=== PATIENT | female | born 1960 | race Caucasian/White ===

== ENCOUNTER 2019-09-03 08:40 | Outpatient (CLI) | payer BC, SELFPAY ==
--- NOTE | 2019-09-03 09:12 | CT_ITS ---
WS: [id number] CT ABDOMEN AND PELVIS WITH CONTRAST HISTORY: PELVIC MASS TECHNIQUE: Imaging performed of the abdomen and pelvis with IV contrast. Single phase imaging of the abdomen. Coronal and sagittal reformats are submitted. All CT scans at [facility] use at least one of these dose optimization techniques: automated exposure control; mA and/or kV adjustment per patient size (includes targeted exams where dose is matched to clinical indication); or iterativ e reconstruction. IV CONTRAST: Omnipaque 300; 95 mL IV. Oral contrast: Yes. DLP: 1856.83 mGy.cm COMPARISON: Pelvic ultrasound 08/16/2019. Lower thorax: Lung bases are clear. Heart is normal size. No hiatal hernia. Liver/biliary system: Liver is normal size. Decreased attenuation throughout the liver from hepatic s teatosis. 2 mm hypoattenuating nodule in the anterior LEFT lobe. Portal vein is patent. Gallbladder: Normal. No gallstones or wall thickening. No pericholecystic fluid. Pancreas: Normal. Spleen: Normal. Adrenal glands: Normal. Right kidney: Normal size RIGHT kidney. Minimally complex cyst from the upper pole measures 2.5 cm. N onobstructing 3 mm calcification in the lower pole. Left kidney: Normal. Aorta: Normal. Lymphadenopathy: Several small, subcentimeter retroperitoneal lymph nodes. The largest measures 9 mm along the LEFT common iliac chain. Free fluid: None. GI tract: Prior appendectomy. No obstruction. Abdominal wall: Small fat-containing umbilical hernia. Pelvis: There is a large solid mass with variable density and enhancement in the central pelvis. This mass extends over a length of 15 cm to the level of the umbilicus. Maximum transverse diameter of 14 .1 cm anterior posterior by 12.6 cm. Due to its position this is most likely a large fibroid. Ovaries are being displaced. Bones: Severe degenerative disc disease at L5-S1. CT/CT abdomen pelvis w con* [id number] IMPRESSION: 1. Large pelvic mass consistent with uterine fibroid measuring 15.0 x 14.1 x 1 2.6 cm. Recommend FINANCIAL OPERATIONS CLERK consultation and surgical excision. 2. No ascites or adenopathy. 3. Hepatic steatosis.
[2019-09-03] MEDS: iohexol 300 mg/mL 50 mL Btl VAGINAL (09:34)
[2019-09-03 09:54] LABS: Blood Urea Nitrogen 16 mg/dL (8-23); Glomerular Filtration Rate 125.9 mL/min (90-130)
[2019-09-03] MEDS: iohexol 300 mg/mL 100 mL Btl IV (10:26)
== END 2019-09-03 08:41 | disposition home or self-care (01) ==
PROVIDERS: Family Provider Family Medicine; Visit Provider Family Medicine
DX: R19.00 Intra-abdominal and pelvic swelling, mass and lump, unspecified site (principal); K76.0 Fatty (change of) liver, not elsewhere classified
CPT/HCPCS: 36415; 74177; 82565; 84520

== ENCOUNTER 2020-01-29 08:55 | Inpatient (IN) | payer BC, SELFPAY ==
[2020-01-29] VITALS (19 sets, daily range): BP systolic 112–146; BP diastolic 66–94; PULSE 75–85; RESP 18–37; TEMP 36.9–37.1; O2SAT 82–94; BMI 36.9
--- NOTE | 2020-01-29 09:40 | ED_ITS ---
HPI - SOB/Dyspnea General: Chief Complaint: COVID symptoms Stated Complaint: Covid pos 01/19/20 Time Seen by Provider: 01/29/20 09:07 History of Present Illness: HPI Narrative: 59-year-old female presents emergency room with complaint shortness of breath. She was diagnosed at an outside clinic with Covid on 01/18. She is taken a 10-day course of dexamethasone. She been monitoring her oxygen sats at home. Presents today complaining of shortness of breath with any exertional effort usually at rest at times sats on room air at home of been measured by a finger sat monitor to be in the 75 to 85% range. She has had temperatures as well T-max up to 102. She has had some diarrhea. She has a history of asthma and borderline hypertension she is not diabetic MD elicited complaint: shortness of breath and cough Pertinent past history: asthma Onset (ago): day(s) Context: recent illness (Diagnosed with COVID-19 on January 19, 2020) Timing: constant Severity: moderate Exacerbating factors: exertion Relieving factors: oxygen and rest Known history of: asthma Associated symptoms: Reports cough; Deny abdominal pain, chest congestion, chest pain, diaphoresis, dizziness, extremity pain, fever(s), hemoptysis, lightheadedness, myalgias, nausea, orthopnea, palpitations, paresthesias, polydipsia, polyuria, rash, sense of impending doom, syncope or vomiting Treatment prior to arrival: none Review of Systems Const: Denies: fever(s) or diaphoresis ENMT: Denies: throat pain, ear or mastoid pain, nasal discharge or nasal congestion Card: Denies: chest pain, palpitations, lightheadedness, syncope or orthopnea Resp: Denies: hemoptysis or chest congestion GI: Denies: abdominal pain, nausea or vomiting : Denies: flank pain, difficulty voiding, dysuria, urinary frequency or urinary urgency Musc: Denies: extremity pain Skin/Breast: Denies: rash or pruritus Neuro: Denies: dizziness Endo: Denies: polyuria or polydipsia PFS ED PFSH: Medical History Asthma Surgical History H/O hysterectomy for benign disease Secondary to uterine fibroid, August 2019 History of appendectomy History of sinus surgery Family History Other CAD (coronary artery disease) Social History Smoking and tobacco status: never smoked Alcohol intake: never Substance/Drug Use: never Physical Exam Const: COMMON NORMALS: no acute distress GENERAL APPEARANCE: cooperative and comfortable ORIENTATION/CONSCIOUSNESS: Yes awake, Yes oriented to person, Yes oriented to place and Yes oriented to time HENMT: COMMON NORMALS: normocephalic, atraumatic and hearing grossly normal bilaterally HEAD & SCALP: normocephalic and atraumatic Eye: COMMON NORMALS: Equal, round and reactive pupils present, EOMs intact bilaterally, conjunctivae normal and no scleral icterus CONJUNCTIVA: Yes conjunctivae normal PUPIL: Yes Equal, round and reactive pupils present Neck/C-Spine: COMMON NORMALS: full ROM, no lymphadenopathy, supple and no JVD Lymph: LYMPHATIC: no lymphadenopathy noted and no lymphedema noted Resp: AUSCULTATION: rhonchi and wheezes Cardio: COMMON NORMALS: no JVD, regular rate, regular rhythm and No murmurs present (Cardio) RATE: regular rate RHYTHM: regular rhythm GI: COMMON NORMALS: Soft to palpation and No hepatosplenomegaly present AUSCULTATION: Yes normoactive bowel sounds PALPATION: Yes Soft to palpation, No Tenderness to palpation present (GI), No Guarding due to palpation present (GI) and Yes No hepatosplenomegaly present Extremity: COMMON NORMALS: normal to inspection, capillary refill normal, no clubbing, cyanosis or edema, no calf tenderness and no pedal edema Neuro: SENSORIUM/ORIENTATION: Yes oriented to person, Yes oriented to place and Yes oriented to time Skin: COMMON NORMALS: no rashes or lesions noted GENERAL SKIN EXAM: no rashes or lesions noted Course Vital Signs: Vital signs: Vital Signs Temperature 97.7 F 02/02/20 08:00 Pulse Rate 72 02/02/20 08:00 Respiratory Rate 20 H 02/02/20 08:00 Blood Pressure 147/85 02/02/20 08:00 Pulse Oximetry 94 02/02/20 08:00 MDM - SOB/Dyspnea MDM Narrative: Medical decision making narrative: Patient with COVID-19 requiring increased oxygen support will go ahead and admit to the PICU discussed Dr. Hooks orders are written Lab Data: Labs: Lab Results 01/29/20 01/29/20 01/29/20 Range/Units 09:57 10:19 10:19 WBC 11.8 H (4.0-10.0) 10^3/ uL RBC 4.48 (4.1-5.3) 10^6/u L Hgb 14.3 (11.5-15.3) g/dL Hct 44.1 (37.0-47.0) % MCV 98.4 (81-99) fL MCH 31.9 (28.0-34.0) pg MCHC 32.4 (30.0-36.0) g/dL RDW 13.3 (12.1-15.1) % Plt Count 212 (130-400) 10^3/c mm MPV 10.4 (7.4-10.4) fL Neut % (Auto) 93.8 % Lymph % (Auto) 3.6 % [place] % (Auto) 1.5 % Eos % (Auto) 0.3 % Baso % (Auto) 0.1 % Neut # (Auto) 11.10 H (1.8-7.7) 10^3/u L Lymph # (Auto) 0.4 L (0.8-4.8) 10^3/u L [place] # (Auto) 0.2 (0.2-0.9) 10^3/u L Eos # (Auto) 0.0 (0.0-0.8) 10^3/u L Baso # (Auto) 0.0 (0.0-0.1) 10^3/u L Nucleated RBC % (a uto) 0 % Nucleated RBCs # 0.0 /100WBC Fibrinogen 724 H (174-498) mg/dL D-Dimer 0.75 H (0-0.59) ug/mIFE U Specimen Type Arterial Sample Site Radial, right ABG pH 7.47 H (7.35-7.45) ABG pCO2 35.8 (35-45) mmHg ABG pO2 64.0 L (80.0-100.0) mmH g ABG HCO3 26.2 H (22-26) mmol/L ABG Base Excess 2.8 H (-2.0-2.0) mmol/ L Jerry Test Pos Hematocrit 46.4 (37-47) % O2 Delivery Device Nc O2 Liters/Min 2.5 % Microsoft Crm Developer ID Gd Sodium (136-145) mmol/L Potassium (3.5-5.1) mmol/L Chloride (98-107) mmol/L Carbon Dioxide (22-29) mmol/L Anion Gap (5-19) BUN (8-23) mg/dL Creatinine (0.5-0.9) mg/dL GFR Calculation (90-130) mL/min Glucose (65-115) mg/dL Calculated Osmolal ity (285-295) mOsm/k g Lactic Acid (0.5-2.2) mmol/L Calcium (8.5-10.5) mg/dL Ferritin (15-150) ng/mL Total Bilirubin (0.15-1.2) mg/dL AST (0-32) U/L ALT (0-33) U/L Alkaline Phosphata se (35-105) IU/L Lactate Dehydrogen ase (135-214) U/L C-Reactive Protein (0.0-4.9) mg/L Total Protein (6.6-8.7) g/dL Albumin (3.5-5.2) g/dL Globulin (1.3-4.6) g/dL Procalcitonin (0-0.5) ng/mL TSH (0.27-4.20) uIU/ mL Hepatitis A IgM Ab (Nonreactive) Hep Bs Antigen (Nonreactive) Hep B Core IgM Ab (Nonreactive) Hepatitis C Antibo dy (Nonreactive) Influenza Type A A g (Negative) Influenza Type B A g (Negative) 01/29/20 01/29/20 01/29/20 Range/Units 10:19 10:19 10:19 WBC (4.0-10.0) 10^3/ uL RBC (4.1-5.3) 10^6/u L Hgb (11.5-15.3) g/dL Hct (37.0-47.0) % MCV (81-99) fL MCH (28.0-34.0) pg MCHC (30.0-36.0) g/dL RDW (12.1-15.1) % Plt Count (130-400) 10^3/c mm MPV (7.4-10.4) fL Neut % (Auto) % Lymph % (Auto) % [place] % (Auto) % Eos % (Auto) % Baso % (Auto) % Neut # (Auto) (1.8-7.7) 10^3/u L Lymph # (Auto) (0.8-4.8) 10^3/u L [place] # (Auto) (0.2-0.9) 10^3/u L Eos # (Auto) (0.0-0.8) 10^3/u L Baso # (Auto) (0.0-0.1) 10^3/u L Nucleated RBC % (a uto) % Nucleated RBCs # /100WBC Fibrinogen (174-498) mg/dL D-Dimer (0-0.59) ug/mIFE U Specimen Type Sample Site ABG pH (7.35-7.45) ABG pCO2 (35-45) mmHg ABG pO2 (80.0-100.0) mmH g ABG HCO3 (22-26) mmol/L ABG Base Excess (-2.0-2.0) mmol/ L Jerry Test Hematocrit (37-47) % O2 Delivery Device O2 Liters/Min % Microsoft Crm Developer ID Sodium 134 L (136-145) mmol/L Potassium 3.9 (3.5-5.1) mmol/L Chloride 97 L (98-107) mmol/L Carbon Dioxide 26 (22-29) mmol/L Anion Gap 14.9 (5-19) BUN 11 (8-23) mg/dL Creatinine 0.5 (0.5-0.9) mg/dL GFR Calculation 125.9 (90-130) mL/min Glucose 113 (65-115) mg/dL Calculated Osmolal ity 278 L (285-295) mOsm/k g Lactic Acid 1.0 (0.5-2.2) mmol/L Calcium 8.9 (8.5-10.5) mg/dL Ferritin 459 H (15-150) ng/mL Total Bilirubin 0.5 (0.15-1.2) mg/dL AST 121 H (0-32) U/L ALT 178 H (0-33) U/L Alkaline Phosphata se 291 H (35-105) IU/L Lactate Dehydrogen ase 396 H (135-214) U/L C-Reactive Protein 271.2 H (0.0-4.9) mg/L Total Protein 7.1 (6.6-8.7) g/dL Albumin 3.6 (3.5-5.2) g/dL Globulin 3.5 (1.3-4.6) g/dL Procalcitonin (0-0.5) ng/mL TSH (0.27-4.20) uIU/ mL Hepatitis A IgM Ab (Nonreactive) Hep Bs Antigen (Nonreactive) Hep B Core IgM Ab (Nonreactive) Hepatitis C Antibo dy (Nonreactive) Influenza Type A A g Negative (Negative) Influenza Type B A g Negative (Negative) 01/29/20 01/29/20 Range/Units 10:19 10:19 WBC (4.0-10.0) 10^3/ uL RBC (4.1-5.3) 10^6/u L Hgb (11.5-15.3) g/dL Hct (37.0-47.0) % MCV (81-99) fL MCH (28.0-34.0) pg MCHC (30.0-36.0) g/dL RDW (12.1-15.1) % Plt Count (130-400) 10^3/c mm MPV (7.4-10.4) fL Neut % (Auto) % Lymph % (Auto) % [place] % (Auto) % Eos % (Auto) % Baso % (Auto) % Neut # (Auto) (1.8-7.7) 10^3/u L Lymph # (Auto) (0.8-4.8) 10^3/u L [place] # (Auto) (0.2-0.9) 10^3/u L Eos # (Auto) (0.0-0.8) 10^3/u L Baso # (Auto) (0.0-0.1) 10^3/u L Nucleated RBC % (a uto) % Nucleated RBCs # /100WBC Fibrinogen (174-498) mg/dL D-Dimer (0-0.59) ug/mIFE U Specimen Type Sample Site ABG pH (7.35-7.45) ABG pCO2 (35-45) mmHg ABG pO2 (80.0-100.0) mmH g ABG HCO3 (22-26) mmol/L ABG Base Excess (-2.0-2.0) mmol/ L Jerry Test Hematocrit (37-47) % O2 Delivery Device O2 Liters/Min % Microsoft Crm Developer ID Sodium (136-145) mmol/L Potassium (3.5-5.1) mmol/L Chloride (98-107) mmol/L Carbon Dioxide (22-29) mmol/L Anion Gap (5-19) BUN (8-23) mg/dL Creatinine (0.5-0.9) mg/dL GFR Calculation (90-130) mL/min Glucose (65-115) mg/dL Calculated Osmolal ity (285-295) mOsm/k g Lactic Acid (0.5-2.2) mmol/L Calcium (8.5-10.5) mg/dL Ferritin (15-150) ng/mL Total Bilirubin (0.15-1.2) mg/dL AST (0-32) U/L ALT (0-33) U/L Alkaline Phosphata se (35-105) IU/L Lactate Dehydrogen ase (135-214) U/L C-Reactive Protein (0.0-4.9) mg/L Total Protein (6.6-8.7) g/dL Albumin (3.5-5.2) g/dL Globulin (1.3-4.6) g/dL Procalcitonin 0.17 (0-0.5) ng/mL TSH 2.33 (0.27-4.20) uIU/ mL Hepatitis A IgM Ab Non-reactive (Nonreactive) Hep Bs Antigen Non-reactive (Nonreactive) Hep B Core IgM Ab Non-reactive (Nonreactive) Hepatitis C Antibo dy Non-reactive (Nonreactive) Influenza Type A A g (Negative) Influenza Type B A g (Negative) Discharge Plan Discharge Patient Disposition: Admitted As Inpatient Admit Provider: Brendan Hooks Clinical Impression: Pneumonia due to COVID-19 virus, Transaminitis Condition: Stable Interventions: ED Discharge Assessment Last Done: 01/29/20 15:56 ED Charges Last Done: 11/03/20 15:56 Discharge Date/Time: 11/03/20 16:51 Coding Level of Care Code ED Digital Strategy Specialist for Chg Fwd Exam Comprehensive
--- NOTE | 2020-01-29 09:46 | XR_ITS ---
WS: [id number] Portable AP upright chest, 01/29/2020 Clinical Data: dyspnea Comparison: PA and lateral chest, 07/15/2014. Findings: Bilateral patchy opacities present in both lungs are consistent with diffuse bilateral pneu monia. The heart is normal. The aortic arch and descending aorta are tortuous. There are no nodules, masses or effusions. XR/XR chest 1V portable [id number] Impression: 1. Patchy bilateral opacities consistent with diffuse bilateral pneumonia. 2. Atherosclerosis.
[2020-01-29 10:14] LABS: ABG PCO2 35.8 mmHg (35-45); ABG PH Result 7.47 (7.35-7.45); Arterial Blood Gas Hematocrit 46.4 % (37-47); Base Excess ABG 2.8 mmol/L (-2.0-2.0); Blood Gas Allen Test Pos; Blood Gas LPM 2.5 %; Blood Gas Operator Identificat GD; Blood Gas Sample Site Radial, right; Blood Gas Sample Type Arterial; HCO3 ABG 26.2 mmol/L (22-26); Oxygen Device NC
[2020-01-29 10:28] LABS: Basophils % 0.1 %; Eosinophils % 0.3 %; Hematocrit 44.1 % (37.0-47.0); Hemoglobin 14.3 g/dL (11.5-15.3); Lymphocytes # 0.4 10^3/uL (0.8-4.8); Lymphocytes % 3.6 %; Mean Corpuscular HGB Conc 32.4 g/dL (30.0-36.0); Mean Corpuscular Hemoglobin 31.9 pg (28.0-34.0); Mean Corpuscular Volume 98.4 fL (81-99); Mean Platelet Volume 10.4 fL (7.4-10.4); Monocytes # 0.2 10^3/uL (0.2-0.9); Monocytes % 1.5 %; Neutrophils % 93.8 %; Nucleated Red Blood Cells % 0 %; Platelet Count 212 10^3/cmm (130-400); Red Blood Count 4.48 10^6/uL (4.1-5.3); Red Cell Distribution Width 13.3 % (12.1-15.1); White Blood Count 11.8 10^3/uL (4.0-10.0)
[2020-01-29 10:40] LABS: Fibrinogen 724 mg/dL (174-498)
[2020-01-29 10:43] LABS: D Dimer 0.75 ug/mIFEU (0-0.59)
[2020-01-29 10:47] LABS: Alanine Aminotransferase 178 U/L (0-33); Albumin Level 3.6 g/dL (3.5-5.2); Alkaline Phosphatase 291 IU/L (35-105); Anion Gap 14.9 (5-19); Aspartate Amino Transferase 121 U/L (0-32); Blood Urea Nitrogen 11 mg/dL (8-23); C Reactive Protein 271.2 mg/L (0.0-4.9); Calcium 8.9 mg/dL (8.5-10.5); Carbon Dioxide 26 mmol/L (22-29); Chloride 97 mmol/L (98-107); Ferritin 459 ng/mL (15-150); Globulin 3.5 g/dL (1.3-4.6); Glomerular Filtration Rate 125.9 mL/min (90-130); Glucose 113 mg/dL (65-115); Lactate Dehydrogenase 396 U/L (135-214); Osmolality Calculated 278 mOsm/kg (285-295); Potassium 3.9 mmol/L (3.5-5.1); Sodium 134 mmol/L (136-145); Total Bilirubin 0.5 mg/dL (0.15-1.2); Total Protein 7.1 g/dL (6.6-8.7)
--- NOTE | 2020-01-29 11:00 | CT_ITS ---
WS: [id number] CTA OF THE CHEST WITH PULMONARY EMBOLISM PROTOCOL TECHNIQUE: High-resolution contrast enhanced CTA of the chest with coronal and sagittal reformatted i mages with pulmonary embolism protocol. MIP images are also reviewed. CLINICAL INFORMATION: dyspnea/hypoxia COMPARISON: None. DLP: 479.[address] scans at [facility] use at least one of these dose optimization techniques: automat ed exposure control; mA and/or kV adjustment per patient size (includes targeted exams where dose is matched to clinical indication); or iterative reconstruction. FINDINGS: Moderate chronic emphysematous changes. Trace pleural effusions. Diffuse patchy groundglass infiltrat es mainly in a perihilar distribution and right upper lobe distribution. This can be seen with viral pneumonia. No focal consolidation. Proximal main pulmonary arteries are normal. Segmental and subsegmental pulmonary arteries are normal . No evidence of pulmonary embolus. Normal caliber thoracic aorta. Enlarged mediastinal, paratracheal, hilar, and subcarinal lymph nodes are nonspecific but may be reactive. Diffuse fatty infiltration the liver. Adrenal glands are normal. Normal GE junction. Hypertrophic juan carlos nges mid thoracic spine. No axillary lymphadenopathy. CT/CT angio chest PE protcl [id number] IMPRESSION: 1. Proximal main pulmonary arteries are normal. Segmental and subsegmental pul monary arteries are normal. No evidence for pulmonary embolus. 2. Diffuse bilateral hazy groundglass infiltrates mainly in a perihilar distri bution suspicious for viral pneumonia. Trace pleural effusions with bibasilar a telectasis. 3. Enlarged mediastinal,paratracheal and hilar lymph nodes nonspecific but lik joseph reactive. 4. Diffuse fatty infiltration liver. Message left for Ronny Wheeler DO at 01/29/2020 11:38 AM.
[2020-01-29 11:20] LABS: Influenza A by IFA Negative (Negative); Influenza B by IFA Negative (Negative)
[2020-01-29] MEDS: dexamethasone 4 mg/mL INJ 10 MG IVP (12:27)
--- NOTE | 2020-01-29 13:01 | PM.HP ---
Providers/Chief Complaint Primary Care Provider: Shane Garcia MD Chief Complaint: Covid pos 01/19/20 History of Present Illness Rebecca Simon is a 59 year old female who reports she has had symptoms worrisome for Covid since perhaps 15 of January. She has had nasal congestion, cough, intermittent fevers, nausea. She reports she has been short of breath lately, and having more asthma symptoms. Cough is usually nonproductive. She tested positive for Covid, at [facility] on January 18. She states her is a nurse, who has Covid as well but is doing okay at home. She reports some chest discomfort, when she takes a deep breath. She denies any hemoptysis, blood in her stool, black or tarry stool, bleeding disorder. She reports usually her asthma is very mild. She does not use a steroid inhaler. She reports use of albuterol, perhaps once per month. While in the emergency department she was found to have a room air oxygen saturation of 82% and therefore was put on oxygen. She received a dose of dexamethasone, and remdesivir. Review of Systems General: Reports: 10 or more systems reviewed and unremarkable except in HPI and below Const: Reports: fever(s), chills and body aches Eyes: Denies: change in vision ENMT: Denies: throat pain Card: Reports: chest pain Resp: Reports: dyspnea and non-productive cough GI: Denies: abdominal pain : Denies: flank pain Musc: Denies: neck pain Skin/Breast: Denies: rash Neuro: Denies: headache(s) Psych: Denies: anxiety Endo: Denies: polyuria Jose/Lymph: Denies: easy bruising All/Imm: Denies: urticaria Medications/Allergies Home Medications Medication Instructions Recorded Confirmed Last Taken Type Vitamin D3 1 tab PO DAILY 01/29/20 01/29/20 Unknown History acetaminophen [Tylenol Extra 1,000 mg PO PRN 01/29/20 01/29/20 01/28/20 History Strength] albuterol sulfate 2.5 mg INHALATION QID PRN 01/29/20 01/29/20 01/28/20 History diphenhydramine HCl [Benadryl] 25 mg PO PRN 01/29/20 01/29/20 Unknown History levothyroxine [Euthyrox] 137 mcg PO DAILY 01/29/20 01/29/20 01/29/20 History multivitamin [Multiple Vitamins] 1 tab PO DAILY 01/29/20 01/29/20 Unknown History Allergies Allergy/AdvReac Type Severity Reaction Status Date / Time No Known Allergies Allergy Verified 01/29/20 10:12 PFSH Acute PFSH: Medical History (Updated 01/29/20 @ 13:10 by Selvin Ontiveros MD) Asthma Surgical History (Updated 01/29/20 @ 13:05 by Selvin Ontiveros MD) H/O hysterectomy for benign disease Secondary to uterine fibroid, August 2019 History of appendectomy History of sinus surgery Family History (Updated 01/29/20 @ 13:05 by Selvin Ontiveros MD) Other CAD (coronary artery disease) Social History (Updated 01/29/20 @ 13:06 by Selvin Ontiveros MD) Smoking and tobacco status: never smoked Alcohol intake: never Substance/Drug Use: never Supplemental PFSH Information: Father had Mellette's chorea Vitals/I&O/Wt Last Vital Signs Temp 98.8 F 01/29/20 09:45 Pulse 82 01/29/20 09:45 Resp 18 01/29/20 09:45 BP 146/91 01/29/20 09:45 Pulse Ox 82 L 01/29/20 09:45 Weight last 48 hrs Weight 103.873 kg Physical Exam Narrative: EXAM NARRATIVE: General exam is a dyspneic white female, in mild respiratory distress HEENT: Pupils equally round. Oropharynx clear. Neck is supple no lymphadenopathy or thyromegaly Cardiovascular regular rate and rhythm without murmur Lungs few scattered dry crackles. No wheezing. Diminished breath sounds is noted bilaterally Abdomen is soft with positive bowel sounds. No obvious organomegaly was deferred Extremities no cyanosis clubbing or edema, cap refill brisk Skin no rash Neuro no focal deficits Data : 01/29/20 10:19 01/29/20 10:19 Other data: AST 121, ALT 178, alk phos 291, LDH 396, CRP 271, albumin 3.6 Influenza a and B- pH 7.47, PCO2 36, PO2 64 on 2.5 L Dimer 0.75, fibrinogen 724 CTA demonstrates enlarged mediastinal lymph nodes likely reactive, fatty liver, no pulmonary embolism, groundglass infiltrates consistent with viral pneumonia Chest x-ray per my read bilateral interstitial infiltrates. A&P Assessment and plan (1) Pneumonia due to COVID-19 virus: Meets criteria for severe COVID-19 pneumonia. Admission Oxygen as needed Remdesivir Dexamethasone 6 mg IV every 24 hours Albuterol as needed Incentive spirometry Prone as much as possible Doxycycline in case of superimposed bacterial infection. Check procalcitonin level. If significantly elevated may wish to expand coverage. Likely repeat inflammatory levels 01/30 Status: Acute (2) Asthma: Mild intermittent per history, however in the face of Covid will initiate Advair. 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
[2020-01-29 13:42] LABS: Procalcitonin 0.17 ng/mL (0-0.5); Thyroid Stimulating Hormone 2.33 uIU/mL (0.27-4.20)
[2020-01-29 16:35] LABS: Hepatitis A Antibody IgM Non-Reactive (Nonreactive); Hepatitis B Core IgM Non-Reactive (Nonreactive); Hepatitis B Surface Antigen Non-Reactive (Nonreactive); Hepatitis C Virus Antibody Non-Reactive (Nonreactive)
[2020-01-29] MEDS: doxycycline 100 MG in sodium chloride 0.9% (plus) 100 ML IV (17:19)
[2020-01-29] MEDS: enoxaparin 40 mg/0.4 mL Syringe SUBCUT (17:36)
--- NOTE | 2020-01-29 21:45 | PC.NURSE ---
Patient's BUN 87. BUN value improved from previous test et is currently receiving hemodialysis.
[2020-01-30] VITALS (34 sets, daily range): BP systolic 110–146; BP diastolic 59–94; PULSE 65–89; RESP 13–40; TEMP 36.5–36.9; O2SAT 85–98
[2020-01-30] MEDS: acetaminophen 325 mg Tablet 650 MG PO ×2 (01:11→11:57)
[2020-01-30] MEDS: pneumococcal (23 valent) SDV 0.5 mL IM (04:46)
[2020-01-30] MEDS: doxycycline 100 MG in sodium chloride 0.9% (plus) 100 ML IV ×2 (05:07→16:26)
[2020-01-30 06:23] LABS: Hematocrit 43.2 % (37.0-47.0); Hemoglobin 13.7 g/dL (11.5-15.3); Lymphocytes # 0.3 10^3/uL (0.8-4.8); Lymphocytes % 3.9 %; Mean Corpuscular HGB Conc 31.7 g/dL (30.0-36.0); Mean Corpuscular Hemoglobin 31.2 pg (28.0-34.0); Mean Corpuscular Volume 98.4 fL (81-99); Mean Platelet Volume 11.2 fL (7.4-10.4); Monocytes # 0.2 10^3/uL (0.2-0.9); Monocytes % 2.4 %; Neutrophils # 6.92 10^3/uL (1.8-7.7); Nucleated Red Blood Cells % 0 %; Platelet Count 227 10^3/cmm (130-400); Red Blood Count 4.39 10^6/uL (4.1-5.3); Red Cell Distribution Width 13.2 % (12.1-15.1); White Blood Count 7.4 10^3/uL (4.0-10.0)
[2020-01-30] MEDS: levothyroxine 112 mcg Tablet PO (06:37)
[2020-01-30 06:38] LABS: Alanine Aminotransferase 129 U/L (0-33); Albumin Level 3.4 g/dL (3.5-5.2); Alkaline Phosphatase 260 IU/L (35-105); Anion Gap 16.9 (5-19); Aspartate Amino Transferase 64 U/L (0-32); Blood Urea Nitrogen 12 mg/dL (8-23); Carbon Dioxide 25 mmol/L (22-29); Chloride 97 mmol/L (98-107); Globulin 3.5 g/dL (1.3-4.6); Glomerular Filtration Rate 125.9 mL/min (90-130); Glucose 148 mg/dL (65-115); Osmolality Calculated 283 mOsm/kg (285-295); Potassium 3.9 mmol/L (3.5-5.1); Sodium 135 mmol/L (136-145); Total Bilirubin 0.3 mg/dL (0.15-1.2); Total Protein 6.9 g/dL (6.6-8.7)
[2020-01-30] MEDS: levothyroxine 25 mcg Tablet PO (06:38)
[2020-01-30 06:40] LABS: C Reactive Protein 301.9 mg/L (0.0-4.9)
[2020-01-30 06:45] LABS: Magnesium 2.1 mg/dL (1.7-2.3)
[2020-01-30] MEDS: dexamethasone 4 mg/mL INJ 6 MG IVP (08:07)
[2020-01-30] MEDS: multivitamin therapeutic Tablet 1 TAB PO (08:07)
[2020-01-30] MEDS: enoxaparin 40 mg/0.4 mL Syringe SUBCUT (15:18)
--- NOTE | 2020-01-30 15:36 | PM.PN ---
Subjective Subjective: Interval history: She was up to the sink to perform her morning hygiene just before my visit. Got pretty tired, but overall was able to accomplish what she needed. Overall was feeling little bit better today. Does get tired easily. Denies chest pain or pressure. No headache, no nausea vomiting, diarrhea. Vitals/I&O/Wt Last Vital Signs Temp 98.1 F 01/30/20 12:00 Pulse 84 01/30/20 15:00 Resp 27 H 01/30/20 15:00 BP 126/59 01/30/20 15:00 Pulse Ox 93 01/30/20 15:00 01/30/20 01/30/20 01/30/20 06:59 14:59 22:59 Intake Total 700 / 1410 580 / 580 Output Total 550 / 1500 700 / 700 Balance 150 / -90 -120 / -120 Weight last 48 hrs Weight 103.873 kg Weight 103.873 kg Physical Exam Const: COMMON NORMALS: no acute distress, patient oriented x3 and alert NUTRITIONAL APPEARANCE: obese ORIENTATION/CONSCIOUSNESS: Yes awake OTHER: Sitting up in bed, cooperative. Pleasant, conversant. In good spirits. HENMT: COMMON NORMALS: oropharynx normal Neck/C-Spine: COMMON NORMALS: no JVD Resp: COMMON NORMALS: normal respiratory effort AUSCULTATION: crackles Laterality: bilateral (Few faint crackles at bases.) Cardio: COMMON NORMALS: no JVD, regular rhythm, S1 normal heart sound present, S2 normal heart sound present and No murmurs present (Cardio) RHYTHM: regular rhythm HEART SOUNDS: S1 normal heart sound present and S2 normal heart sound present GI: COMMON NORMALS: Normal to inspection, nondistended, normoactive bowel sounds present, Soft to palpation and non-tender PALPATION: Yes Soft to palpation Extremity: COMMON NORMALS: no joint enlargement and no pedal edema Neuro: COMMON NORMALS: patient oriented x3 and moves all extremities SENSORIUM/ORIENTATION: Yes alert Skin: COMMON NORMALS: no rashes or lesions noted GENERAL SKIN EXAM: no rashes or lesions noted Data : 01/30/20 03:45 01/30/20 03:45 Micro: Microbiology 01/29/20 14:08 Blood Culture - Preliminary Blood NEGATIVE TO DATE 01/29/20 14:08 Blood Culture - Preliminary Blood NEGATIVE TO DATE A&P Assessment and plan (1) Pneumonia due to COVID-19 virus: Meets criteria for severe COVID-19 pneumonia. Subjectively somewhat improved this morning, but is requiring 8 L high flow nasal cannula oxygen during the day. Saturation 91%. Easily fatigable. D-dimer 0.8. CRP higher at 301.9. Liver parameters improved, AST 64, ALT 129, alk phos 260. Remdesivir was ordered, but appears first dose was held. Will restart currently given deterioration in oxygenation, improvement in liver parameters. Monitor liver function. Renal function is good so far. Continue Decadron Albuterol as needed Incentive spirometry Prone as much as possible Doxycycline in case of superimposed bacterial infection. Continue unchanged. Procalcitonin unremarkable. Status: Acute (2) Asthma: Mild intermittent per history. In the face of Covid initiated on Advair. No wheezing. Combivent every 4 hours as needed Status: Acute (3) Hypothyroidism: Normal TSH Continue levothyroxine Status: Acute (4) Transaminitis: Improving. Likely secondary to COVID-19 Unremarkable hepatitis panel Repeat laboratory tomorrow Status: Acute Additional A&P Information Full code SCDs for DVT prophylaxis as well as Lovenox Attestations Medical Necessity Statement*: Continue admission for assessment of management of severe COVID-19 infection, hypoxia, transaminitis, insetting of underlying asthma. 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
[2020-01-31] VITALS (30 sets, daily range): BP systolic 117–146; BP diastolic 67–103; PULSE 70–86; RESP 16–34; TEMP 36.4–36.9; O2SAT 87–97
[2020-01-31] MEDS: doxycycline 100 MG in sodium chloride 0.9% (plus) 100 ML IV ×2 (04:04→16:33)
[2020-01-31] MEDS: levothyroxine 112 mcg Tablet PO (05:08)
[2020-01-31] MEDS: levothyroxine 25 mcg Tablet PO (05:08)
[2020-01-31 06:34] LABS: Basophils % 0.1 %; Hematocrit 40.8 % (37.0-47.0); Hemoglobin 12.9 g/dL (11.5-15.3); Lymphocytes # 0.5 10^3/uL (0.8-4.8); Lymphocytes % 4.7 %; Mean Corpuscular HGB Conc 31.6 g/dL (30.0-36.0); Mean Corpuscular Hemoglobin 31.2 pg (28.0-34.0); Mean Corpuscular Volume 98.6 fL (81-99); Mean Platelet Volume 10.9 fL (7.4-10.4); Monocytes # 0.4 10^3/uL (0.2-0.9); Neutrophils # 9.78 10^3/uL (1.8-7.7); Neutrophils % 90.6 %; Nucleated Red Blood Cells % 0 %; Platelet Count 290 10^3/cmm (130-400); Red Blood Count 4.14 10^6/uL (4.1-5.3); Red Cell Distribution Width 13.1 % (12.1-15.1); White Blood Count 10.8 10^3/uL (4.0-10.0)
[2020-01-31 06:56] LABS: Alanine Aminotransferase 101 U/L (0-33); Albumin Level 3.2 g/dL (3.5-5.2); Alkaline Phosphatase 227 IU/L (35-105); Aspartate Amino Transferase 51 U/L (0-32); Blood Urea Nitrogen 16 mg/dL (8-23); C Reactive Protein 99.6 mg/L (0.0-4.9); Carbon Dioxide 26 mmol/L (22-29); Chloride 99 mmol/L (98-107); Globulin 3.4 g/dL (1.3-4.6); Glomerular Filtration Rate 125.9 mL/min (90-130); Glucose 111 mg/dL (65-115); Osmolality Calculated 288 mOsm/kg (285-295); Sodium 138 mmol/L (136-145); Total Bilirubin 0.2 mg/dL (0.15-1.2); Total Protein 6.6 g/dL (6.6-8.7)
[2020-01-31] MEDS: multivitamin therapeutic Tablet 1 TAB PO (08:00)
[2020-01-31] MEDS: dexamethasone 4 mg/mL INJ 6 MG IVP (08:00)
[2020-01-31] MEDS: acetaminophen 325 mg Tablet 650 MG PO (08:00)
[2020-01-31] MEDS: benzonatate 100 mg Capsule PO (08:04)
--- NOTE | 2020-01-31 12:22 | PM.PN ---
Subjective Subjective: Interval history: Patient is feeling well. Her oxygen has been increased,, subjectively she says she is doing all right. Saturation has been staying good. She has been working with I-S and flutter valve. Denies chest pain. Denies nausea vomiting or diarrhea. No headache. Vitals/I&O/Wt Last Vital Signs Temp 97.9 F 01/31/20 12:00 Pulse 80 01/31/20 12:00 Resp 30 H 01/31/20 12:00 BP 125/86 01/31/20 12:00 Pulse Ox 97 01/31/20 12:00 01/30/20 01/31/20 01/31/20 22:59 06:59 14:59 Intake Total 577 / 1157 720 / 720 Output Total 400 / 1100 350 / 1450 Balance 177 / 57 -350 / -293 720 / 720 Weight last 48 hrs Weight 103.873 kg Physical Exam Const: COMMON NORMALS: no acute distress, patient oriented x3 and alert NUTRITIONAL APPEARANCE: obese ORIENTATION/CONSCIOUSNESS: Yes awake OTHER: Sitting up in bed, cooperative. Pleasant, conversant. In good spirits. HENMT: COMMON NORMALS: oropharynx normal Neck/C-Spine: COMMON NORMALS: no JVD Resp: COMMON NORMALS: normal respiratory effort AUSCULTATION: bronchial breath sounds Cardio: COMMON NORMALS: no JVD, regular rhythm, S1 normal heart sound present, S2 normal heart sound present and No murmurs present (Cardio) RHYTHM: regular rhythm HEART SOUNDS: S1 normal heart sound present and S2 normal heart sound present GI: COMMON NORMALS: Normal to inspection, nondistended, normoactive bowel sounds present, Soft to palpation and non-tender PALPATION: Yes Soft to palpation Extremity: COMMON NORMALS: no joint enlargement and no pedal edema Neuro: COMMON NORMALS: patient oriented x3 and moves all extremities SENSORIUM/ORIENTATION: Yes alert Skin: COMMON NORMALS: no rashes or lesions noted GENERAL SKIN EXAM: no rashes or lesions noted Data : 01/31/20 04:16 01/31/20 04:16 Micro: Microbiology 01/29/20 14:08 Blood Culture - Preliminary Blood NEGATIVE TO DATE 01/29/20 14:08 Blood Culture - Preliminary Blood NEGATIVE TO DATE A&P Assessment and plan (1) Pneumonia due to COVID-19 virus: Hypoxic respiratory failure, Severe COVID-19 pneumonia. Requiring 10 L of oxygen by high flow cannula. Subjectively she is doing all right. Denies chest pain. CRP is down today to 99 from 301.9. D-dimer is not back due to lacking reagents in the lab, I am told will be back later today. Continue prophylactic Lovenox. Continue remdesivir, Decadron. Monitor liver function. Renal function is good so far. Albuterol as needed Incentive spirometry Prone as much as possible Doxycycline in case of superimposed bacterial infection. Continue. WC up to 10.8. Procalcitonin unremarkable. Discussed with her . Status: Acute (2) Asthma: Mild intermittent per history. In the face of Covid initiated on Advair. No wheezing. Combivent every 4 hours as needed Status: Acute (3) Hypothyroidism: Normal TSH Continue levothyroxine Status: Acute (4) Transaminitis: Improving. Monitor levels. Fatty liver infiltration noted on CTA. Discussed with her . Will need additional follow-up with PCP and strategies to reduce progression and possibly reverse. Would expect also contribution from COVID-19 Unremarkable hepatitis panel Status: Acute Additional A&P Information Full code SCDs for DVT prophylaxis as well as Lovenox Attestations Medical Necessity Statement*: Continue admission for assessment management of severe COVID-19 pneumonia, hypoxic respite failure, in the setting of chronic asthma. 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
[2020-01-31] MEDS: enoxaparin 40 mg/0.4 mL Syringe SUBCUT (14:49)
[2020-01-31 15:11] LABS: D Dimer 0.97 ug/mIFEU (0-0.59)
[2020-02-01] VITALS (28 sets, daily range): BP systolic 125–177; BP diastolic 79–105; PULSE 62–89; RESP 12–33; TEMP 36.5–37.1; O2SAT 79–96
[2020-02-01 04:26] LABS: Basophils % 0.1 %; Hematocrit 41.5 % (37.0-47.0); Hemoglobin 12.9 g/dL (11.5-15.3); Lymphocytes # 0.5 10^3/uL (0.8-4.8); Lymphocytes % 6.8 %; Mean Corpuscular HGB Conc 31.1 g/dL (30.0-36.0); Mean Corpuscular Hemoglobin 31.2 pg (28.0-34.0); Mean Corpuscular Volume 100.5 fL (81-99); Mean Platelet Volume 10.5 fL (7.4-10.4); Monocytes # 0.5 10^3/uL (0.2-0.9); Neutrophils # 6.41 10^3/uL (1.8-7.7); Nucleated Red Blood Cells % 0 %; Platelet Count 282 10^3/cmm (130-400); Red Blood Count 4.13 10^6/uL (4.1-5.3); Red Cell Distribution Width 13.2 % (12.1-15.1); White Blood Count 7.5 10^3/uL (4.0-10.0)
[2020-02-01 04:48] LABS: D Dimer 0.69 ug/mIFEU (0-0.59)
[2020-02-01 05:19] LABS: Blood Urea Nitrogen 19 mg/dL (8-23); C Reactive Protein 42.2 mg/L (0.0-4.9); Calcium 9.1 mg/dL (8.5-10.5); Carbon Dioxide 25 mmol/L (22-29); Chloride 100 mmol/L (98-107); Globulin 3.6 g/dL (1.3-4.6); Glomerular Filtration Rate 162.8 mL/min (90-130); Glucose 102 mg/dL (65-115); Osmolality Calculated 286 mOsm/kg (285-295); Sodium 137 mmol/L (136-145); Total Bilirubin 0.2 mg/dL (0.15-1.2); Total Protein 6.6 g/dL (6.6-8.7)
[2020-02-01 05:22] LABS: Alanine Aminotransferase 85 U/L (0-33); Alkaline Phosphatase 213 IU/L (35-105); Anion Gap 16.7 (5-19); Aspartate Amino Transferase 52 U/L (0-32); Potassium 4.7 mmol/L (3.5-5.1)
[2020-02-01] MEDS: levothyroxine 112 mcg Tablet PO (05:59)
[2020-02-01] MEDS: levothyroxine 25 mcg Tablet PO (05:59)
[2020-02-01] MEDS: doxycycline 100 MG in sodium chloride 0.9% (plus) 100 ML IV ×2 (05:59→16:20)
[2020-02-01] MEDS: multivitamin therapeutic Tablet 1 TAB PO (08:07)
[2020-02-01] MEDS: benzonatate 100 mg Capsule PO ×3 (08:07→22:16)
[2020-02-01] MEDS: dexamethasone 4 mg/mL INJ 6 MG IVP (08:07)
--- NOTE | 2020-02-01 13:19 | PC.RESP ---
walked pt. in hallway on 6lpm scooby. well. then she cont. with getting cleaned up. 88% sats
[2020-02-01] MEDS: enoxaparin 40 mg/0.4 mL Syringe SUBCUT (15:07)
--- NOTE | 2020-02-01 18:16 | P.PN_ITS ---
Subjective Subjective: Interval history: She feels little bit better today. Oxygen requirement has been coming down. She is working with incentive spirometer and flutter valve. No trouble eating or drinking. No chest pain apart from some pleuritic discomfort. Vitals/I&O/Wt Last Vital Signs Temp 97.8 F 02/01/20 16:00 Pulse 89 02/01/20 17:38 Resp 16 02/01/20 17:37 BP 148/88 02/01/20 16:00 Pulse Ox 92 02/01/20 17:37 02/01/20 02/01/20 02/01/20 06:59 14:59 22:59 Intake Total 700 / 700 100 / 800 Output Total Balance -1271 700 / 700 100 / 800 Physical Exam Const: COMMON NORMALS: no acute distress, patient oriented x3 and alert NUTRITIONAL APPEARANCE: obese ORIENTATION/CONSCIOUSNESS: Yes awake OTHER: Sitting up in bed, cooperative. Comfortable. In good spirits. HENMT: COMMON NORMALS: oropharynx normal Neck/C-Spine: COMMON NORMALS: no JVD Resp: COMMON NORMALS: normal respiratory effort AUSCULTATION: wheezes (Minute wheeze in right lower lobe resolved after first breath) and diminished lung sounds (Mildly) Cardio: COMMON NORMALS: no JVD, regular rhythm, S1 normal heart sound present, S2 normal heart sound present and No murmurs present (Cardio) RHYTHM: regular rhythm HEART SOUNDS: S1 normal heart sound present and S2 normal heart sound present GI: COMMON NORMALS: Normal to inspection, nondistended, normoactive bowel sounds present, Soft to palpation and non-tender PALPATION: Yes Soft to palpation Extremity: COMMON NORMALS: no joint enlargement and no pedal edema Neuro: COMMON NORMALS: patient oriented x3 and moves all extremities SENSORIUM/ORIENTATION: Yes alert Skin: COMMON NORMALS: no rashes or lesions noted GENERAL SKIN EXAM: no rash es or lesions noted Data : 02/01/20 04:05 02/01/20 04:05 A&P Assessment and plan (1) Pneumonia due to COVID-19 virus: She is progressing well. Subjectively feeling better. O2 requirement is coming down. This evening down to 5 L cannula. Will transfer out of VICU. Continue remdesivir, Decadron, MDI, wean down oxygen as tolerating. Walked in the [place] today. Continue to mobilize. Hypoxic respiratory failure, Severe COVID-19 pneumonia. Improving. Continue prophylactic Lovenox. D-dimer is improving. Recheck. Recheck CRP. Monitor liver function. This is improving. Albuterol as needed Incentive spirometry Doxycycline in case of superimposed bacterial infection. Continue. WBC resolved. Procalcitonin unremarkable. Status: Acute (2) Asthma: Minute wheeze noted today. Possible exacerbation. Has DuoNeb as needed. On steroid. Mild intermittent per history. In the face of Covid initiated on Advair. Combivent every 4 hours as needed Status: Acute (3) Hypothyroidism: Normal TSH Continue levothyroxine Status: Acute (4) Transaminitis: Improving. Monitor levels. Fatty liver infiltration noted on CTA. Will need additional follow-up with PCP and strategies to reduce progression and possibly reverse. Would expect also contribution from COVID-19 Unremarkable hepatitis panel Status: Acute Additional A&P Information Full code SCDs for DVT prophylaxis as well as Lovenox Attestations Medical Necessity Statement*: Continue admission for assessment management of severe COVID-19 infection, respiratory failure with hypoxia. Coding Level of Care Code Acute Director Television News for [facility] Fwd Diagnoses Pneumonia due to COVID-19 virus U07.1; J12.89 Asthma J45.909 Hypothyroidism E03.9 Transaminitis R74.01
--- NOTE | 2020-02-01 19:39 | PC.NURSE ---
Report called to Urszula in the transferring unit patient will be going to room 271. supervisor nut processing also notified of transfer request. No other concerns noted at thsi time. Patient assisted to pack her belongings. No other concerns noted at this time,
[2020-02-02] VITALS (13 sets, daily range): BP systolic 124–177; BP diastolic 73–98; PULSE 65–85; RESP 16–32; TEMP 36.5–37.1; O2SAT 91–96
[2020-02-02] MEDS: amlodipine 10 mg Tablet PO ×2 (00:46→07:48)
[2020-02-02 05:31] LABS: Alanine Aminotransferase 68 U/L (0-33); Albumin Level 3.1 g/dL (3.5-5.2); Alkaline Phosphatase 190 IU/L (35-105); C Reactive Protein 15.3 mg/L (0.0-4.9); Chloride 99 mmol/L (98-107); Sodium 135 mmol/L (136-145)
[2020-02-02 05:48] LABS: Basophils % 0.2 %; Hematocrit 40.5 % (37.0-47.0); Hemoglobin 12.7 g/dL (11.5-15.3); Lymphocytes # 0.6 10^3/uL (0.8-4.8); Mean Corpuscular HGB Conc 31.4 g/dL (30.0-36.0); Mean Corpuscular Hemoglobin 31.4 pg (28.0-34.0); Mean Corpuscular Volume 100.2 fL (81-99); Mean Platelet Volume 10.3 fL (7.4-10.4); Monocytes # 0.5 10^3/uL (0.2-0.9); Monocytes % 6.4 %; Neutrophils # 6.73 10^3/uL (1.8-7.7); Neutrophils % 83.8 %; Nucleated Red Blood Cells % 0 %; Platelet Count 303 10^3/cmm (130-400); Red Blood Count 4.04 10^6/uL (4.1-5.3); Red Cell Distribution Width 12.6 % (12.1-15.1)
[2020-02-02 05:55] LABS: D Dimer 1.02 ug/mIFEU (0-0.59)
[2020-02-02] MEDS: doxycycline 100 MG in sodium chloride 0.9% (plus) 100 ML IV ×2 (05:59→17:15)
[2020-02-02] MEDS: levothyroxine 112 mcg Tablet PO (06:00)
[2020-02-02] MEDS: levothyroxine 25 mcg Tablet PO (06:00)
[2020-02-02 06:28] LABS: Aspartate Amino Transferase 29 U/L (0-32); Blood Urea Nitrogen 18 mg/dL (8-23); Calcium 8.8 mg/dL (8.5-10.5); Carbon Dioxide 25 mmol/L (22-29); Globulin 2.7 g/dL (1.3-4.6); Glomerular Filtration Rate 162.8 mL/min (90-130); Glucose 105 mg/dL (65-115); Osmolality Calculated 282 mOsm/kg (285-295); Total Bilirubin 0.2 mg/dL (0.15-1.2); Total Protein 5.8 g/dL (6.6-8.7)
[2020-02-02] MEDS: multivitamin therapeutic Tablet 1 TAB PO (07:48)
[2020-02-02] MEDS: benzonatate 100 mg Capsule PO ×3 (07:48→22:06)
[2020-02-02] MEDS: dexamethasone 4 mg/mL INJ 6 MG IVP (09:00)
--- NOTE | 2020-02-02 11:07 | P.PN_ITS ---
Subjective Subjective: Interval history: Subjectively she is doing about the same. Denies any worsening symptoms. She has been trying to get up a little bit in her room. Working with incentive spirometer, flutter valve. Just underwent breathing treatment. Has been coughing somewhat. No chest pain or pressure. No nausea or vomiting. Vitals/I&O/Wt Last Vital Signs Temp 97.7 F 02/02/20 08:00 Pulse 75 02/02/20 09:47 Resp 18 02/02/20 09:30 BP 147/85 02/02/20 08:00 Pulse Ox 92 02/02/20 09:30 02/01/20 02/02/20 02/02/20 22:59 06:59 14:59 Intake Total 700 / 1400 480 / 480 Output Total 250 / 250 750 / 1000 Balance 450 / 1150 -750 / 400 480 / 480 Physical Exam Const: COMMON NORMALS: no acute distress, patient oriented x3 and alert NUTRITIONAL APPEARANCE: obese ORIENTATION/CONSCIOUSNESS: Yes awake OTHER: Sitting up in bed. Comfortable. Conversant. High flow cannula on. HENMT: COMMON NORMALS: oropharynx normal Neck/C-Spine: COMMON NORMALS: no JVD Resp: COMMON NORMALS: normal respiratory effort EFFORT & INSPECTION: Yes able to speak in complete sentences AUSCULTATION: wheezes (Minute wheeze in right lower lobe resolved after first breath) and diminished lung sounds (Mildly) Cardio: COMMON NORMALS: no JVD, regular rhythm, S1 normal heart sound present, S2 normal heart sound present and No murmurs present (Cardio) RHYTHM: regular rhythm HEART SOUNDS: S1 normal heart sound present and S2 normal heart sound present GI: COMMON NORMALS: Normal to inspection, nondistended, normoactive bowel sounds present, Soft to palpation and non-tender PALPATION: Yes Soft to palpation Extremity: COMMON NORMALS: no joint enlargement and no pedal edema Neuro: COMMON NORMALS: patient oriented x3 and moves all extremities SENSORIUM/ORIENTATION: Yes alert Skin: COMMON NORMALS: no rashes or lesions noted GENERAL SKIN EXAM: no rashes or lesions noted Data : 02/02/20 04:15 02/02/20 04:13 A&P Assessment and plan (1) Pneumonia due to COVID-19 virus: Subjectively she is about the same. Oxygenation with a little bit stalled improvement. On 6-7 L high flow cannula. CRP is little bit better today. D-dimer is little bit worse. Continue remdesivir, steroids, Lovenox for DVT prophylaxis. Prone as tolerating. Wean down oxygen as tolerating. Continue to mobilize. Hypoxic respiratory failure, Severe COVID-19 pneumonia. This morning could not reach for update. Monitor liver function. This is improving. Albuterol as needed Incentive spirometry Recheck D-dimer, CRP. Doxycycline in case of superimposed bacterial infection. Continue. WBC resolved. Procalcitonin unremarkable. Status: Acute (2) Asthma: No wheezing today. Continue DuoNeb as needed. Steroid. Mild intermittent per history. In the face of Covid initiated on Advair. Combivent every 4 hours as needed Status: Acute (3) Hypothyroidism: Normal TSH Continue levothyroxine Status: Acute (4) Transaminitis: Improving. Monitor levels. Fatty liver infiltration noted on CTA. Will need additional follow-up with PCP and strategies to reduce progression and possibly reverse. Would expect also contribution from COVID-19 Unremarkable hepatitis panel Status: Acute Additional A&P Information Full code SCDs for DVT prophylaxis as well as Lovenox Attestations Medical Necessity Statement*: Continue admission for assessment of severe COVID-19 pneumonia, acute hypoxic respiratory failure. 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
[2020-02-02] MEDS: enoxaparin 40 mg/0.4 mL Syringe SUBCUT (15:39)
[2020-02-03] VITALS (10 sets, daily range): BP systolic 118–135; BP diastolic 70–81; PULSE 62–86; RESP 15–28; TEMP 36.5–37.1; O2SAT 90–95
[2020-02-03] MEDS: levothyroxine 112 mcg Tablet PO (06:09)
[2020-02-03] MEDS: levothyroxine 25 mcg Tablet PO (06:09)
[2020-02-03] MEDS: doxycycline 100 MG in sodium chloride 0.9% (plus) 100 ML IV ×2 (06:09→16:44)
[2020-02-03 06:19] LABS: Basophils % 0.2 %; Eosinophils % 0.1 %; Hematocrit 40.1 % (37.0-47.0); Hemoglobin 12.8 g/dL (11.5-15.3); Lymphocytes # 0.7 10^3/uL (0.8-4.8); Lymphocytes % 7.9 %; Mean Corpuscular HGB Conc 31.9 g/dL (30.0-36.0); Mean Corpuscular Hemoglobin 31.1 pg (28.0-34.0); Mean Corpuscular Volume 97.6 fL (81-99); Mean Platelet Volume 10.1 fL (7.4-10.4); Monocytes # 0.6 10^3/uL (0.2-0.9); Neutrophils # 7.65 10^3/uL (1.8-7.7); Neutrophils % 83.5 %; Nucleated Red Blood Cells % 0 %; Platelet Count 336 10^3/cmm (130-400); Red Blood Count 4.11 10^6/uL (4.1-5.3); Red Cell Distribution Width 12.6 % (12.1-15.1); White Blood Count 9.2 10^3/uL (4.0-10.0)
[2020-02-03 06:35] LABS: D Dimer 0.72 ug/mIFEU (0-0.59)
[2020-02-03 06:41] LABS: Alanine Aminotransferase 57 U/L (0-33); Albumin Level 3.3 g/dL (3.5-5.2); Alkaline Phosphatase 174 IU/L (35-105); Anion Gap 13.6 (5-19); Aspartate Amino Transferase 20 U/L (0-32); Blood Urea Nitrogen 17 mg/dL (8-23); C Reactive Protein 8.7 mg/L (0.0-4.9); Calcium 8.9 mg/dL (8.5-10.5); Carbon Dioxide 26 mmol/L (22-29); Chloride 101 mmol/L (98-107); Globulin 2.9 g/dL (1.3-4.6); Glomerular Filtration Rate 125.9 mL/min (90-130); Glucose 113 mg/dL (65-115); Osmolality Calculated 286 mOsm/kg (285-295); Potassium 3.6 mmol/L (3.5-5.1); Sodium 137 mmol/L (136-145); Total Bilirubin 0.3 mg/dL (0.15-1.2); Total Protein 6.2 g/dL (6.6-8.7)
[2020-02-03] MEDS: amlodipine 10 mg Tablet PO (07:37)
[2020-02-03] MEDS: multivitamin therapeutic Tablet 1 TAB PO (07:37)
[2020-02-03] MEDS: benzonatate 100 mg Capsule PO ×3 (07:38→21:56)
--- NOTE | 2020-02-03 08:00 | XRR_ITS ---
PROCEDURE INFORMATION: Exam: XR Chest, 1 View Exam date and time: 02/03/2020 8:22 AM Age: 59 years old Clinical indication: Dyspnea; Patient HX: Covid +; Additional info: Hypoxia TECHNIQUE: Imaging protocol: XR of the chest Views: 1 view. COMPARISON: CR XR chest 1V portable [id number] 01/29/2020 9:48 AM FINDINGS: Lungs: Extensive mixed interstitial/alveolar opacities throughout both lungs, increased from prior study. This may represent any combination of pulmonary edema and pneumonia. Pleural space: No visible pneumothorax. Small right pleural effusion, increased from prior study. Heart/Mediastinum: Heart size within normal limits. Bones/joints: No emergent findings identified. XR/XR chest 1V portable [id number] IMPRESSION: 1. Extensive mixed interstitial/alveolar opacities throughout both lungs, increased from prior study. This may represent any combination of pulmonary edema and pneumonia. 2. Small right pleural effusion, increased from prior study.
[2020-02-03] MEDS: dexamethasone 4 mg/mL INJ 6 MG IVP (10:37)
--- NOTE | 2020-02-03 11:24 | P.PN_ITS ---
Subjective Subjective: Interval history: She feels alright, having some cough, but denies cough with food or drink. No chest pain. No N/V. Vitals/I&O/Wt Last Vital Signs Temp 97.7 F 02/03/20 07:54 Pulse 83 02/03/20 08:35 Resp 18 02/03/20 08:30 BP 134/80 02/03/20 07:54 Pulse Ox 95 02/03/20 08:30 02/02/20 02/03/20 02/03/20 22:59 06:59 14:59 Intake Total 500 / 1340 540 / 1880 360 / 360 Output Total 600 / 600 350 / 950 100 / 100 Balance -100 / 740 190 / 930 260 / 260 Physical Exam Const: COMMON NORMALS: no acute distress, patient oriented x3 and alert NUTRITIONAL APPEARANCE: obese ORIENTATION/CONSCIOUSNESS: Yes awake OTHER: Sitting up in bed. Comfortable. Conversant. High flow cannula on 5L HENMT: COMMON NORMALS: oropharynx normal Neck/C-Spine: COMMON NORMALS: no JVD Resp: COMMON NORMALS: normal respiratory effort EFFORT & INSPECTION: Yes able to speak in complete sentences AUSCULTATION: no crackles, no rhonchi, wheezes (Minimal wheeze) and diminished lung sounds (Mildly) Cardio: COMMON NORMALS: no JVD, regular rhythm, S1 normal heart sound present, S2 normal heart sound present and No murmurs present (Cardio) RHYTHM: regular rhythm HEART SOUNDS: S1 normal heart sound present and S2 normal heart sound present GI: COMMON NORMALS: Normal to inspection, nondistended, normoactive bowel sounds present, Soft to palpation and non-tender PALPATION: Yes Soft to palpation Extremity: COMMON NORMALS: no joint enlargement and no pedal edema Neuro: COMMON NORMALS: patient oriented x3 and moves all extremities SENSORIUM/ORIENTATION: Yes alert Skin: COMMON NORMALS: no rashes or lesions noted GENERAL SKIN EXAM: no rashes or lesions noted Data : 02/03/20 05:00 02/03/20 05:00 A&P Assessment and plan (1) Pneumonia due to COVID-19 virus: Continues to have cough, denies chest pain. Inflammatory markers continue to improve as discussed with her. D-dimer 2.72, CRP down to 8.7. Hypoxia appears to be improving, although slowly. She is currently down to 5 L by high flow cannula. Continue remdesivir, Decadron, Lovenox prophylaxis at this time. Discussed with her if oxygenation continues to gradually improve to the point where can be maintained on oxygen at home, potentially may be looking at discharge within the next several days, unless there are any additional complications. Mobilize. Hypoxic respiratory failure, Severe COVID-19 pneumonia. Attempted to reach on listed phone number for an update. Liver function improving. Albuterol as needed Incentive spirometry Recheck D-dimer, CRP. Doxycycline in case of superimposed bacterial infection. Continue. WBC resolved. Procalcitonin unremarkable. Status: Acute (2) Asthma: Minimal wheeze still present. Continue Combivent as needed. Steroid. Mild intermittent per history. Advair. Combivent every 4 hours as needed Status: Acute (3) Hypothyroidism: Normal TSH Continue levothyroxine Status: Acute (4) Transaminitis: Improving. Monitor levels. Fatty liver infiltration noted on CTA. Will need additional follow-up with PCP and strategies to reduce progression and possibly reverse. Would expect also contribution from COVID-19 Unremarkable hepatitis panel Status: Acute Additional A&P Information Full code SCDs for DVT prophylaxis as well as Lovenox Attestations Medical Necessity Statement*: Continue admission for assessment management of acute respiratory failure with hypoxia, severe COVID-19 infection. Coding Level of Care Code Acute Grade And Center Marker for [facility] Fwd Diagnoses Pneumonia due to COVID-19 virus U07.1; J12.89 Asthma J45.909 Hypothyroidism E03.9 Transaminitis R74.01
[2020-02-03] MEDS: enoxaparin 40 mg/0.4 mL Syringe SUBCUT (15:08)
[2020-02-03 15:51] LABS: C Reactive Protein 6.6 mg/L (0.0-4.9)
[2020-02-03 15:57] LABS: D Dimer 0.76 ug/mIFEU (0-0.59)
[2020-02-04] VITALS (11 sets, daily range): BP systolic 108–136; BP diastolic 71–91; PULSE 62–81; RESP 16–20; TEMP 36.6–37; O2SAT 90–96
[2020-02-04 05:04] LABS: Alanine Aminotransferase 46 U/L (0-33); Albumin Level 3.2 g/dL (3.5-5.2); Alkaline Phosphatase 151 IU/L (35-105); Anion Gap 13.8 (5-19); Aspartate Amino Transferase 17 U/L (0-32); Blood Urea Nitrogen 18 mg/dL (8-23); Calcium 8.9 mg/dL (8.5-10.5); Carbon Dioxide 26 mmol/L (22-29); Chloride 102 mmol/L (98-107); Globulin 2.6 g/dL (1.3-4.6); Glomerular Filtration Rate 125.9 mL/min (90-130); Glucose 125 mg/dL (65-115); Osmolality Calculated 289 mOsm/kg (285-295); Potassium 3.8 mmol/L (3.5-5.1); Sodium 138 mmol/L (136-145); Total Bilirubin 0.3 mg/dL (0.15-1.2); Total Protein 5.8 g/dL (6.6-8.7)
[2020-02-04] MEDS: doxycycline 100 MG in sodium chloride 0.9% (plus) 100 ML IV (06:20)
[2020-02-04] MEDS: levothyroxine 112 mcg Tablet PO (06:20)
[2020-02-04] MEDS: levothyroxine 25 mcg Tablet PO (06:20)
[2020-02-04 07:09] LABS: Basophils % 0.3 %; Eosinophils % 0.2 %; Hematocrit 39.3 % (37.0-47.0); Hemoglobin 12.6 g/dL (11.5-15.3); Lymphocytes # 0.7 10^3/uL (0.8-4.8); Lymphocytes % 6.6 %; Mean Corpuscular HGB Conc 32.1 g/dL (30.0-36.0); Mean Corpuscular Hemoglobin 31.4 pg (28.0-34.0); Mean Platelet Volume 10.6 fL (7.4-10.4); Monocytes # 0.6 10^3/uL (0.2-0.9); Monocytes % 5.8 %; Neutrophils # 9.23 10^3/uL (1.8-7.7); Neutrophils % 84.4 %; Nucleated Red Blood Cells % 0 %; Platelet Count 351 10^3/cmm (130-400); Red Blood Count 4.01 10^6/uL (4.1-5.3); Red Cell Distribution Width 12.5 % (12.1-15.1); White Blood Count 10.9 10^3/uL (4.0-10.0)
[2020-02-04 08:04] LABS: C Reactive Protein 5.7 mg/L (0.0-4.9)
[2020-02-04] MEDS: amlodipine 10 mg Tablet PO (09:25)
[2020-02-04] MEDS: multivitamin therapeutic Tablet 1 TAB PO (09:26)
[2020-02-04] MEDS: benzonatate 100 mg Capsule PO ×3 (09:26→21:36)
[2020-02-04 11:19] LABS: NT Pro B Type Natriuretic Pept 78 pg/mL (0-125); Procalcitonin 0.03 ng/mL (0-0.5)
[2020-02-04] MEDS: predniSONE 20 mg Tablet 40 MG PO (11:48)
[2020-02-04] MEDS: FUROsemide 20 mg Tablet PO (11:48)
[2020-02-04] MEDS: ascorbic acid 500 mg Tablet PO (11:49)
[2020-02-04] MEDS: pantoprazole DR 40 mg Tablet PO (11:49)
[2020-02-04] MEDS: zinc gluconate 50 mg Tablet PO (11:49)
--- NOTE | 2020-02-04 13:45 | PM.PN ---
Subjective Subjective: Interval history: Hospital course and labs reviewed. She feels alright, having some cough, but denies cough with food or drink. No chest pain. No N/V. on 3 L NC to mantain saturation over 90 % Vitals/I&O/Wt Last Vital Signs Temp 97.8 F 02/05/20 04:00 Pulse 62 02/05/20 04:00 Resp 18 02/05/20 04:00 BP 112/74 02/05/20 04:00 Pulse Ox 93 02/05/20 04:00 02/04/20 02/05/20 02/05/20 22:59 06:59 14:59 Intake Total 200 / 400 Balance 200 / 400 Weight last 48 hrs Weight 87.815 kg Weight 72.212 kg Physical Exam Narrative: EXAM NARRATIVE: General exam is a dyspneic white female, in mild respiratory distress HEENT: Pupils equally round. Oropharynx clear. Neck is supple no lymphadenopathy or thyromegaly Cardiovascular regular rate and rhythm without murmur Lungs few scattered dry crackles. No wheezing. Diminished breath sounds is noted bilaterally Abdomen is soft with positive bowel sounds. No obvious organomegaly was deferred Extremities no cyanosis clubbing or edema, cap refill brisk Skin no rash Neuro no focal deficits Data : 02/04/20 03:42 02/04/20 03:42 A&P Assessment and plan (1) Pneumonia due to COVID-19 virus: Status: Acute (2) Asthma: Minimal wheeze still present. Continue Combivent as needed. Steroid. Mild intermittent per history. Advair. Combivent every 4 hours as needed Status: Acute (3) Hypothyroidism: Normal TSH Continue levothyroxine Status: Acute (4) Transaminitis: Improving. Monitor levels. Fatty liver infiltration noted on CTA. Will need additional follow-up with PCP and strategies to reduce progression and possibly reverse. Would expect also contribution from COVID-19 Unremarkable hepatitis panel Status: Acute Additional A&P Information Hypoxia 2/2 COVID 19: Resolving. Wean O2 as able. Ambulate today. Switch to oral prednisone. Will d/c on 2 weeks of AC Combivent, spiriva Vit C and Zinc Full code SCDs for DVT prophylaxis as well as Lovenox Attestations Medical Necessity Statement*: Hypoxia, COVID 19 Time Spent in Patient Care: Greater than 35 minutes Coding Level of Care Code Acute Director Asset for [facility] Fwd Diagnoses Pneumonia due to COVID-19 virus U07.1; J12.89 Asthma J45.909 Hypothyroidism E03.9 Transaminitis R74.01
[2020-02-04] MEDS: enoxaparin 40 mg/0.4 mL Syringe SUBCUT (16:30)
[2020-02-05] VITALS (11 sets, daily range): BP systolic 110–124; BP diastolic 70–80; PULSE 62–90; RESP 17–20; TEMP 36.5–36.9; O2SAT 86–95
[2020-02-05] MEDS: levothyroxine 112 mcg Tablet PO (05:29)
[2020-02-05] MEDS: levothyroxine 25 mcg Tablet PO (05:29)
--- NOTE | 2020-02-05 07:27 | NUR.SHIFT ---
Patient had an unremarkable night, mainly slept. Patient has stated multiple times that she is eager to be discharged.
--- NOTE | 2020-02-05 07:58 | PC.NURSE ---
I reported the low 02 to the nurse
[2020-02-05] MEDS: zinc gluconate 50 mg Tablet PO (08:40)
[2020-02-05] MEDS: benzonatate 100 mg Capsule PO ×2 (08:40→14:32)
[2020-02-05] MEDS: ascorbic acid 500 mg Tablet PO (08:40)
[2020-02-05] MEDS: amlodipine 10 mg Tablet PO (08:40)
[2020-02-05] MEDS: multivitamin therapeutic Tablet 1 TAB PO (08:40)
[2020-02-05] MEDS: predniSONE 20 mg Tablet 40 MG PO (08:40)
[2020-02-05] MEDS: pantoprazole DR 40 mg Tablet PO (08:40)
[2020-02-05 08:45] LABS: Glucose Point of Care 120 mg/dL (70-110)
[2020-02-05 11:32] LABS: Basophils % 0.3 %; Eosinophils # 0.2 10^3/uL (0.0-0.8); Eosinophils % 1.3 %; Hematocrit 41.8 % (37.0-47.0); Hemoglobin 13.4 g/dL (11.5-15.3); Lymphocytes # 1.2 10^3/uL (0.8-4.8); Lymphocytes % 7.8 %; Mean Corpuscular HGB Conc 32.1 g/dL (30.0-36.0); Mean Corpuscular Hemoglobin 31.6 pg (28.0-34.0); Mean Corpuscular Volume 98.6 fL (81-99); Mean Platelet Volume 9.7 fL (7.4-10.4); Monocytes # 0.8 10^3/uL (0.2-0.9); Monocytes % 5.4 %; Neutrophils # 12.51 10^3/uL (1.8-7.7); Neutrophils % 82.6 %; Nucleated Red Blood Cells % 0 %; Platelet Count 361 10^3/cmm (130-400); Red Blood Count 4.24 10^6/uL (4.1-5.3); Red Cell Distribution Width 13.1 % (12.1-15.1); White Blood Count 15.1 10^3/uL (4.0-10.0)
[2020-02-05 11:56] LABS: Alanine Aminotransferase 42 U/L (0-33); Albumin Level 3.3 g/dL (3.5-5.2); Alkaline Phosphatase 141 IU/L (35-105); Anion Gap 14.2 (5-19); Aspartate Amino Transferase 19 U/L (0-32); Blood Urea Nitrogen 19 mg/dL (8-23); Calcium 8.8 mg/dL (8.5-10.5); Carbon Dioxide 28 mmol/L (22-29); Chloride 101 mmol/L (98-107); Globulin 2.7 g/dL (1.3-4.6); Glucose 100 mg/dL (65-115); Osmolality Calculated 292 mOsm/kg (285-295); Potassium 3.2 mmol/L (3.5-5.1); Sodium 140 mmol/L (136-145); Total Bilirubin 0.3 mg/dL (0.15-1.2)
--- NOTE | 2020-02-05 13:13 | PM.DCS ---
Discharge Providers Date of Admission: 01/29/20 15:49 Date of Discharge: February 05, 2020 Attending Provider at Admission: Brendan Hooks Attending Provider at Discharge: Alden Jeong MD Primary Care Provider: Shane Garcia MD Diagnoses at Discharge Discharge Diagnosis (1) Pneumonia due to COVID-19 virus: Status: Acute (2) Asthma: Status: Acute (3) Hypothyroidism: Status: Acute (4) Transaminitis: Status: Acute Reason for Visit Reason for Visit: Covid pos 01/19/20 Hospital Course Hospital Course Rebecca Simon is a 59 year old female who reports she has had symptoms worrisome for Covid since perhaps 15 of January. She has had nasal congestion, cough, intermittent fevers, nausea. She reports she has been short of breath lately, and having more asthma symptoms. Cough is usually nonproductive. She tested positive for Covid, at [facility], [place], operated by [facility] on January 18. She states her is a nurse, who has Covid as well but is doing okay at home. She reports some chest discomfort, when she takes a deep breath. She denies any hemoptysis, blood in her stool, black or tarry stool, bleeding disorder. She reports usually her asthma is very mild. She does not use a steroid inhaler. She reports use of albuterol, perhaps once per month. Patient to be seen because of acute hypoxic respiratory failure in setting to COVID-19 pneumonia and started on antiviral treatment along with dexamethasone. She continues to do well with the treatment and has finished a 5-day course. Patient was monitored for 1 day post completion on treatment. Patient had an unremarkable hospital stay. During hospitalization she was found to have mild transaminitis for which she supposed to follow-up with her primary care provider and repeat LFT in 1 month. It is possible transaminitis is because of viral infection though she did have fatty liver on CTA. She is been discharged hemodynamically stable condition advised to take Advair and Spiriva for next 2 weeks along with vitamin C and zinc. She is advised to maintain social distancing going forward along with mask for next 2 weeks. She is also been discharged on Medrol steroid pack. She is also supposed to follow-up with her primary care provider within next 4 to 7 days. Home O2 eval has been done prior to discharge. Physical Exam Narrative: EXAM NARRATIVE: General exam is a dyspneic white female, in mild respiratory distress HEENT: Pupils equally round. Oropharynx clear. Neck is supple no lymphadenopathy or thyromegaly Cardiovascular regular rate and rhythm without murmur Lungs few scattered dry crackles. No wheezing. Diminished breath sounds is noted bilaterally Abdomen is soft with positive bowel sounds. No obvious organomegaly was deferred Extremities no cyanosis clubbing or edema, cap refill brisk Skin no rash Neuro no focal deficits Discharge Data Data Completed and Pending: Completed Studies During Hospitalization Category Date Time Status CT angio chest PE protcl [id number] Stat Cat Scan 01/29/20 11:00 Completed XR chest 1V flako ble [id number] Routine Exams 02/03/20 08:00 Completed XR chest 1V flako ble [id number] Stat Exams 01/29/20 09:46 Completed Pending at discharge Category Date Time Status Sputum Culture an d Gram Stain Stat Lab 02/03/20 15:20 Results Labs from last 24 hours 02/05/20 02/05/20 02/05/20 10:42 10:42 08:42 WBC 15.1 H RBC 4.24 Hgb 13.4 Hct 41.8 MCV 98.6 MCH 31.6 MCHC 32.1 RDW 13.1 Plt Count 361 MPV 9.7 Neut % (Auto) 82.6 Lymph % (Auto) 7.8 [place] % (Auto) 5.4 Eos % (Auto) 1.3 Baso % (Auto) 0.3 Neut # (Auto) 12.51 H Lymph # (Auto) 1.2 [place] # (Auto) 0.8 Eos # (Auto) 0.2 Baso # (Auto) 0.0 Nucleated RBC % (a uto) 0 Nucleated RBCs # 0.0 Sodium 140 Potassium 3.2 L Chloride 101 Carbon Dioxide 28 Anion Gap 14.2 BUN 19 Creatinine 0.6 GFR Calculation 102.0 Glucose 100 POC Glucose 120 Calculated Osmolal ity 292 Calcium 8.8 Total Bilirubin 0.3 AST 19 ALT 42 H Alkaline Phosphata se 141 H Total Protein 6.0 L Albumin 3.3 L Globulin 2.7 Vitals: Last Vital Signs Temp 97.7 F 02/05/20 11:27 Pulse 67 02/05/20 11:27 Resp 18 02/05/20 11:27 BP 110/74 02/05/20 11:27 Pulse Ox 93 02/05/20 11:49 Discharge Plan Discharge Patient Disposition: Home Condition: Stable Prescriptions: New Advair Diskus 250-50 mcg/dose Blister With Device 1 puff inhalation BID.RESPIRATORY Qty: 30 RF: 0 Vitamin C 500 mg Tablet 500 mg PO DAILY Qty: 14 RF: 0 amlodipine 10 mg Tablet 10 mg PO DAILY Qty: 30 RF: 0 benzonatate 100 mg Capsule 100 mg PO TID PRN (Reason: cough) Qty: 10 RF: 0 pantoprazole 40 mg Tablet,Delayed Release (Dr/Ec) 40 mg PO DAILY Qty: 14 RF: 0 zinc gluconate 50 mg Tablet 50 mg PO DAILY Qty: 30 RF: 0 Spiriva with HandiHaler 18 mcg Capsule, W/Inhalation Device 18 mcg inhalation DAILY.RESPIRATORY Qty: 14 RF: 0 Medrol (Trey) 4 mg tablets,dose pack See Rx Instructions .ROUTE .COMPLEX Qty: 21 RF: 0 Eliquis 5 mg tablet 5 mg PO BID Qty: 30 RF: 0 Continued Multiple Vitamins Tablet 1 tab PO DAILY RF: 0 Euthyrox 137 mcg tablet 137 mcg PO DAILY RF: 0 albuterol sulfate 2.5 mg /3 mL (0.083 %) solution for nebulization 2.5 mg inhalation QID PRN (Reason: Shortness Of Breath) RF: 0 Tylenol Extra Strength 500 mg Tablet 1,000 mg PO PRN RF: 0 Benadryl 25 mg Capsule 25 mg PO PRN RF: 0 Vitamin D3 1 tab PO DAILY RF: 0 Discharge Orders: Discharge Order (Routine); Ordered 02/05/20 Ordered By: Alden Jeong Other Ambulatory Orders: DME: Oxygen (Order) Location: None Selected Ordered By: Alden Jeong Referrals: [facility] [Outside] Shane Garcia MD [Primary Care Provider] - 4-7 days Discharge Diet: Cardiac Discharge Activity: Resume usual activity and Increase activity as tolerated Activity Restrictions/Additional Instructions: Please continue taking Advair and Spiriva for next 2 weeks. Please try to take vitamin C and zinc for next 2 weeks. You will be on steroid taper as prescribed. Please follow-up with your primary care provider in the within next 4 to 7 days. If you have any fever, difficulty in breathing more than baseline please come back to the ER. Please continue to maintain social distancing and wear mask for next 2 weeks. Discharge Attestations Time Spent in Discharge Care*: greater than 30 min Specific Discharge Activities: educating patient, discussing with pcp/other providers, discussing with caseworker intake/social workers/dc planners, documenting/other paperwork and evaluating patient/reviewing data Status at Discharge: Cognitive status at discharge: cognitively intact, Behavioral status at discharge: cooperative, Functional status at discharge: independent ambulation Overall status at discharge: patient is progressing back to baseline Quality Metrics Clinical Quality Measures During this hospital stay, did patient experience: None Coding Level of Care Code Acute Whiting Machine Operator for Chg Fwd Diagnoses Pneumonia due to COVID-19 virus U07.1; J12.89 Asthma J45.909 Hypothyroidism E03.9 Transaminitis R74.01
--- NOTE | 2020-02-08 16:06 | PC.SOCIAL ---
Spoke with the patient on the phone about the discharge information they received spoke about signs and symptoms to watch for such as; blue lips or face, fever of 104 or higher, trouble breathing or catching breath, chest pain lasting longer than 5 minute, confusion or trouble waking up. We also spoke about ways to improve the immune system, these included; eating and drinking well, eating fruits and vegetables, lean meat, low fat dairy products, keeping up with immunizations such as flu/pneumonia/shingles shots, going to all appointments and follow ups, lessening and stress. We also spoke about ways to stop or prevent the spread of the COVID 19. These included; social distancing at all times, washing hands longer than 20 seconds with a good lather, sanitizing surfaces in home and in vehicle, masking up when possible and washing any cloth masks after use and allow them to dry completely before next use, sneezing or coughing into arm, restricting company or going out in public. We spoke a little about the benefits of plasma donation, She is very interested in this. The info will be mailed out. The patient stated that she has an appointment set up next week to see her doctor on 02/13/2020 @ 11:00 AM. The patient is very appreciative of the care she was receiving while in [facility]. She stated that they were all compassionate and cheerful and positive, this helped with her anxiety of being there and fighting the COVID.
== END 2020-02-05 16:42 | disposition home or self-care (01) | DRG 177 ==
LOC: ER 09:11 → ICU 01-30 07:15 → MEDSURG 02-01 20:37
PROVIDERS: Internal Medicine; Admitting Provider Internal Medicine; Emergency Provider Family Medicine; PCP Family Medicine; Visit Provider Student in an Organized Health Care Education/Training Program
DX: U07.1 COVID-19 (principal); J12.89 Other viral pneumonia; J96.01 Acute respiratory failure with hypoxia; J45.20 Mild intermittent asthma, uncomplicated; Z79.51 Long term (current) use of inhaled steroids; E03.9 Hypothyroidism, unspecified; K76.0 Fatty (change of) liver, not elsewhere classified
CPT/HCPCS: 12345; 36415; 36416; 36600; 71045; 71275; 80053; 80074; 82728; 82803; 82962; 83605; 83615; 83735; 83880; 84145; 84443; 85025; 85378; 85384; 86140; 87040; 87070; 87205; 87804; 90471; 90732; 94640; 96372; 96375; 99282; J1100; J1650; J3490; J7512; Q9967

== ENCOUNTER 2021-08-05 12:57 | Outpatient (CLI) | payer BC, SELFPAY ==
--- NOTE | 2021-08-05 13:15 | XR_ITS ---
WS: [id number] DEXA (DUAL ENERGY X-RAY ABSORPTIOMETRY) Bone mineral density was performed using a Piqqual machine. HISTORY: POST MENOPAUSAL COMPARISON: None available. Lumbar spine BMD (L1-L4): 1.136 g/cm2 T score: -0.4 Z score: 0.2 Total hip BMD: Left: 0.838 g/cm2. T score: -1.3 Z score: -0.9 Right: 0.771 g/cm2. T score: -1.9 Z score: -1.4 10 year probability of a major osteoporotic fracture is 10.2%. XR/XR DEXA axial skeleton* [id number] IMPRESSION: OSTEOPENIA based upon the WHO classification for females.
--- NOTE | 2021-08-05 13:16 | MM_ITS ---
WS: [id number] BILATERAL 3D TOMOSYNTHESIS DIGITAL SCREENING MAMMOGRAPHY WITH CAD CLINICAL INFORMATION: SCREENING HISTORY: Screening mammogram. No current complaints. COMPARISON: TECHNIQUE: Bilateral CC and MLO views. FINDINGS: Scattered fibroglandular densities bilaterally. A few incidental punctate calcifications. Incidental intramammary lymph nodes near the chest wall. Stable dense nodular breast tissue upper outer LEFT corby ast. No suspicious focal mass, asymmetry, calcifications, or architectural distortion. No evidence of malignancy. MM/[place] [id number] IMPRESSION: BI-RADS: 2-Benign FOLLOW UP: 1 Year Follow-up Recommend return to annual screening mammography.
== END 2021-08-05 12:58 | disposition home or self-care (01) ==
LOC: RAD 12:59
PROVIDERS: PCP Family Medicine; Visit Provider Family Medicine
DX: Z12.31 Encounter for screening mammogram for malignant neoplasm of breast (principal); Z78.0 Asymptomatic menopausal state; M85.80 Other specified disorders of bone density and structure, unspecified site
CPT/HCPCS: 77063; 77067; 77080

== ENCOUNTER 2022-01-25 13:33 | Outpatient (CLI) | payer BC, SELFPAY ==
--- NOTE | 2022-01-25 13:37 | CT_ITS ---
WS: [id number] CT ABDOMEN AND PELVIS WITH CONTRAST HISTORY: RIGHT lower quadrant pain TECHNIQUE: Imaging performed of the abdomen and pelvis with IV contrast. Single phase imaging of the abdomen. Coronal and sagittal reformats are submitted. All CT scans at [facility] use at [facility] [facility] one of these dose optimization techniques: automated exposure control; mA and/or kV adjustment per patient size (includes targeted exams where dose is matched to clinical indication); or iterative re construction. IV CONTRAST: Omnipaque 350; 95 mL IV. Oral contrast: No DLP: 1221.15 mGy.cm COMPARISON: 09/03/2019 Lower thorax: Lung bases are clear. Heart is normal size. No hiatal hernia. Liver/biliary system: Normal size liver. 5 mm hypodensity in the LEFT lobe no change since 09/03/2019. Normal portal vein. Gallbladder: Normal. No gallstones or wall thickening. No pericholecystic fluid. Pancreas: Normal size pancreas and pancreatic duct. No adjacent inflammation. Spleen: Normal size spleen. No mass or infarct. Adrenal glands: Normal. Right kidney: Normal size kidney. Simple cyst upper pole measures 2.7 x 3.0 cm. Nonobstructing calcif ication lower pole measures 0.4 cm. Left kidney: Too small to characterize hypodensity in the mid cortex. No obstruction. Aorta: Normal. Lymphadenopathy: None. Free fluid: None. GI tract: Normal stomach. Proximal small bowel is normal. Beginning in the distal small bowel there i s submucosal edema with mucosal enhancement. Similar findings extend contiguously into the colon. Muc osal enhancement and submucosal edema persists through the transverse colon and to a lesser extent in the distal colon. There is a change in caliber in the mid transverse colon at the level of the herni a sac. Possibility of adhesion may be present. There is mild pericolonic edema, greatest proximally. Prior appendectomy. Abdominal wall: Ventral abdominal wall hernias. There are multiple ventral abdominal wall hernias whi ch are new since 09/03/2019. There is a loop of colon extending into the hernia but does not appear to be obstructed. The hernia mouth appears wide. Pelvis: No free fluid or adenopathy within the pelvis. Prior hysterectomy. Bones: Unremarkable. CT/CT abdomen pelvis w con* [id number] IMPRESSION: 1. Moderate acute submucosal edema with mucosal enhancement involving the dist al small bowel with extension through a large portion of the colon. There is no obstruction. There is a loop of transverse colon mildly herniating into abdomi nal wall hernia but this does not appear to be causing obstruction. Differentia l includes infection such as pseudomonas colitis, acute inflammatory bowel dise ase and ischemia, all may appear similar. 2. Ventral abdominal wall hernias have increased in extent since 09/03/2019. The re are inflammatory changes at the hernia sac. 3. Prior appendectomy and hysterectomy. Notified Shane Garcia MD at 01/25/2022 2:29 PM.
[2022-01-25] MEDS: iohexol 350 mg/mL 100 mL Btl IV (14:10)
== END 2022-01-25 13:34 | disposition home or self-care (01) ==
PROVIDERS: PCP Family Medicine; Visit Provider Family Medicine
DX: R10.31 Right lower quadrant pain (principal); K43.9 Ventral hernia without obstruction or gangrene
CPT/HCPCS: 74177

== ENCOUNTER 2022-01-27 10:57 | Outpatient (CLI) | payer BC, SELFPAY | END 2022-01-27 10:58 | disposition home or self-care (01) | PROVIDERS: PCP Family Medicine; Visit Provider Family Medicine | DX: K52.9 Noninfective gastroenteritis and colitis, unspecified (principal) | CPT/HCPCS: 83993; 87493; 87506 ==

== ENCOUNTER 2022-12-15 09:31 | Outpatient (CLI) | payer OTHER, SELFPAY ==
--- NOTE | 2022-12-15 09:45 | MM_ITS ---
WS: [id number] BILATERAL SCREENING DIGITAL TOMOSYNTHESIS MAMMOGRAM WITH CAD HISTORY: SCREENING COMPARISON: 08/05/2021 and 07/10/2018 Bilateral CC and MLO views with tomosynthesis and synthetic mammography submitted. Computer aided det ection analyzed. Breast composition: There are scattered areas of fibroglandular density. No suspicious masses, microc alcifications or architectural distortion. Scattered asymmetries in the upper outer quadrants of each breast are stable. IMPRESSION: MM/[place] [id number] BI-RADS: 2-Benign FOLLOW UP: 1 Year Follow-up
== END 2022-12-15 09:32 | disposition home or self-care (01) ==
PROVIDERS: PCP Family Medicine; Visit Provider Family Medicine
DX: Z12.31 Encounter for screening mammogram for malignant neoplasm of breast (principal)
CPT/HCPCS: 77063; 77067

== ENCOUNTER 2024-04-25 13:15 | Outpatient (CLI) | payer OTHER, SELFPAY ==
--- NOTE | 2024-04-25 13:19 | MM_ITS ---
WS: [id number] VIEWS: MLO and CC views both breasts. 3D digital tomosynthesis is also included in this exam. Comparison made with prior exam of 07/10/2018, 08/05/2021, 12/15/2022.. Findings: There are scattered areas of fibroglandular density. No mass, tumor calcification or architectural distortion. MM/MM scr BI tomosynthesis [id number] Impression: BI-RADS: 2 - Benign. FOLLOW-UP: 1 Year Follow-up This mammogram was also analyzed by the Computer Aided Detection System R2 Imag e Telegraph Service Clerk.
--- NOTE | 2024-04-25 13:19 | XR_ITS ---
WS: [id number] DEXA (DUAL ENERGY X-RAY ABSORPTIOMETRY) Bone mineral density was performed using a Orlumet machine. HISTORY: POSTMENOPAUSAL COMPARISON: 08/05/2021 Lumbar spine BMD (L1-L4): 1.145 g/cm2 T score: -0.3 Z score: 0.1 Total hip BMD: Left: 0.807 g/cm2. T score: -1.6 Z score: -1.2 Right: 0.777 g/cm2. T score: -1.8 Z score: -1.5 10 year probability of a major osteoporotic fracture is 12.7%. Compared to the prior study from 08/05/2021. Lumbar spine bone mineral density has increased by 0.8%. Bilateral hips bone mineral density has decreased by 1.5%. XR/XR DEXA axial skeleton* [id number] IMPRESSION: OSTEOPENIA based upon the WHO classification for females. No significant change in bone mineral density within the hips or lumbar spine.
== END 2024-04-25 13:16 | disposition home or self-care (01) ==
LOC: RAD 13:17
PROVIDERS: PCP Family Medicine; Visit Provider Family Medicine
DX: Z12.31 Encounter for screening mammogram for malignant neoplasm of breast (principal); Z78.0 Asymptomatic menopausal state; R92.323 Mammographic fibroglandular density, bilateral breasts
CPT/HCPCS: 77063; 77067; 77080

== ENCOUNTER → 2024-04-30 15:35 | Outpatient (BNVA) | payer OTHER, SELFPAY | PROVIDERS: PCP Family Medicine; Visit Provider Family Medicine | DX: J10.1 Influenza due to other identified influenza virus with other respiratory manifestations (principal) | CPT/HCPCS: 87400 ==